=== PATIENT | male | born 1945 | race American Indian/Alaskan Native ===

== ENCOUNTER 2017-09-18 03:35 | Emergency (ER) | payer MEDICARE ==
[2017-09-18 03:52] VITALS: O2SAT 99
[2017-09-18] MEDS ORDERED: Oxycodone/Acetaminophen 5/325 mg Tab PO STA (04:26)
[2017-09-18] MEDS ORDERED: Oxycodone/Acetaminophen 5/325 mg Tab ONE (04:27)
--- NOTE | 2017-09-18 04:48 | C.PDOC ---
History Of Present Illness 72 yo male come in accompanied by family member for evaluation of Left flank pain,localized, developed for past few hours after sustained fall. Pt reports, " fell backwards and hit the coffee table". Pt reports, pain is localized, worse with movement. Pt admits, intermittent radiation of Left flank/lower back pain to Left hip and thigh area. Otherwise, pt denies had injury, headache, dizziness, LOC, syncope, neck pain, CP, SOB, dyspnea, abd. pain, N/V, UTI sx, saddle anesthesia, incontinence, denies weakness, sensory or vascular deficits o B/L lEs. Ambulatory in ED. Time Seen by Provider: 09/18/17 04:15 Chief Complaint (Nursing): Back Pain History Per: Patient Past Medical History Reviewed: Historical Data, Nursing Documentation, Vital Signs Vital Signs: Last Vital Signs Temp 97.4 F L 09/18/17 05:25 Pulse 84 09/18/17 05:25 Resp 18 09/18/17 05:25 BP 172/78 H 09/18/17 05:25 Pulse Ox 99 09/18/17 05:25 - Medical History PMH: Diabetes, HTN Other PMH: Morbid obesity Family History: States: Unknown Family Hx - Social History Hx Tobacco Use: No Hx Alcohol Use: No Hx Substance Use: No - Immunization History Hx Tetanus Toxoid Vaccination: No Hx Influenza Vaccination: No Hx Pneumococcal Vaccination: No Review Of Systems Except As Marked, All Systems Reviewed And Found Negative. Eyes: Negative for: Vision Change Cardiovascular: Negative for: Chest Pain Respiratory: Negative for: Shortness of Breath, Wheezing Gastrointestinal: Negative for: Nausea, Vomiting, Abdominal Pain, Diarrhea Genitourinary: Negative for: Incontinence, Hematuria Musculoskeletal: Positive for: Back Pain. Negative for: Neck Pain Skin: Negative for: Rash, Bruising Neurological: Negative for: Weakness, Numbness, Altered Mental Status, Headache , Dizziness Physical Exam - Physical Exam Appears: Well, Non-toxic, No Acute Distress Skin: Normal Color, Warm, Dry, No Rash, No Ecchymosis Head: Atraumatic, Normacephalic Eye(s): bilateral: PERRL, EOMI Ear(s): Bilateral: Normal Nose: No Flaring, No Discharge Oral Mucosa: Moist, No Drooling Throat: No Drooling Neck: Trachea Midline, Supple Chest: Symmetrical, No Deformity, No Tenderness Respiratory: No Decreased Breath Sounds, No Accessory Muscle Use Gastrointestinal/Abdominal: Soft, No Tenderness, No Distention, No Guarding Back: No CVA Tenderness, No Vertebral Tenderness, Paraspinal Tenderness (Left lumbar paraspinal), Other (Left flank tenderness. No palpable deformity, no skin changes) Extremity: Normal ROM, No Tenderness, No Pedal Edema, No Deformity Neurological/Psych: Oriented x3, Normal Speech, Normal Motor, Normal Sensation, Normal Reflexes ED Course And Treatment O2 Sat by Pulse Oximetry: 99 Pulse Ox Interpretation: Normal - Other Rad Pelvis B/L hips X-Ray: Interpreted by Me, Viewed By Me Interpretation: (-) acute fx or dislocation Progress Note: On re-evaluation, pt is afebrile, hemodynamicaly stable. NOn- toxic. Ambulatory in ED with stable gait. PulseOx 99% RA. head: AT/NC. neck : SUpple, (-) midline tenderness. ENT: no acute findings. ABd: benign, (-) guaridng, (-) rebound. Neurologicaly intact. HTN noted in ED. Pt denies headache, dizziness, visual changes, focal deficits, abd. pain, V/D . Pt is neurologicaly intact. Advised to take his BP medication at home immeiately and f/u with PMD in AM to repeat BP. Imaging review and appears normal w/o acute findings. Pt has clinical findings c/w left flank contusion, HTN.Fall. Pt was advised on course of ds. Pt ref. to F/u with PMD in 2-3 days for re-eval. return if any new changes. Disposition Counseled Patient/Family Regarding: Studies Performed, Diagnosis, Need For Followup, Rx Given - Disposition Referrals: Rashaad Dudley APN [Non-Staff] - [facility] [Outside] Disposition: HOME/ ROUTINE Disposition Time: 04:53 Condition: STABLE Additional Instructions: Light duty to lower back Take medication as prescribed as need for pain Follow up with PMD in 2-3 days for re-evaluation. Return to ED if any worsening or new changes. Prescriptions: Methocarbamol [Robaxin] 500 mg PO TID #14 tab traMADol [Ultram] 50 mg PO TID #7 tab Instructions: Flank Pain (ED), Muscle Spasm (ED), Hypertension (ED) Forms: [employer] (Malaysian) - Clinical Impression Clinical Impression: Contusion, flank, Hypertension
[2017-09-18 05:26] VITALS: BP 172/78; PULSE 84; RESP 18; TEMP 97.4
--- NOTE | 2017-09-18 09:51 | RAD ---
PROCEDURE: Radiographs of the pelvis and bilateral hips HISTORY: pain COMPARISON: None. FINDINGS: BONES: Pelvis: Unremarkable. Right hip:Unremarkable. Left hip:Unremarkable. JOINTS: Right hip: Unremarkable. Left hip: Unremarkable. Sacroiliac Joints: Unremarkable. Pubic symphysis: Unremarkable. SOFT TISSUES: Normal. OTHER FINDINGS: None. IMPRESSION: Unremarkable radiographs of the hips and pelvis.
== END 2017-09-18 05:38 | disposition home or self-care (01) ==
LOC: C.ER 03:35
DX: S30.1XXA Contusion of abdominal wall, initial encounter (principal); W19.XXXA Unspecified fall, initial encounter; I10 Essential (primary) hypertension; E11.9 Type 2 diabetes mellitus without complications; E66.01 Morbid (severe) obesity due to excess calories